=== PATIENT | female | born 1975 | race Caucasian/White ===

== ENCOUNTER → 2024-01-05 | Outpatient (CLI) | payer OTHER ==
[2024-01-05 19:53] LABS: BASOPHILS ABSOLUTE AUTO 0.04 K/mm3 (0.00-0.23); BASOPHILS PERCENT AUTO 1 % (0-2); EOSINOPHILS ABSOLUTE AUTO 0.15 K/mm3 (0.00-0.68); EOSINOPHILS PERCENT AUTO 3 % (0-6); Hemoglobin 14.1 g/dL (11.5-16.0); IMMATURE GRAN ABSOLUTE AUTO 0.01 K/mm3 (0.00-0.10); IMMATURE GRAN PERCENT AUTO 0 % (0-1); LYMPHOCYTES ABSOLUTE AUTO 1.33 K/mm3 (0.84-5.20); LYMPHOCYTES PERCENT AUTO 28 % (21-46); MONOCYTES ABSOLUTE AUTO 0.26 K/mm3 (0.16-1.47); MONOCYTES PERCENT AUTO 6 % (4-13); Mean Corpuscular HGB 31.9 pg (26.0-34.0); Mean Corpuscular HGB Conc 33.6 g/dL (31.5-36.5); Mean Corpuscular Volume 95 fL (80-100); Mean Platelet Volume 10.2 fL (9.1-12.4); NEUTROPHILS ABSOLUTE AUTO 2.91 K/mm3 (1.96-9.15); NEUTROPHILS PERCENT AUTO 62 % (41-73); Platelet Count 267 K/mm3 (150-400); RDW Coefficient Variation 12.5 % (11.7-14.2); RDW Standard Deviation 43.8 fL (35.1-46.3); RETICULOCYTE ABSOLUTE 0.0332 M/mm3 (0.0200-0.1100); RETICULOCYTE COUNT PERCENT 0.75 % (0.50-2.50); Red Blood Cell Count 4.42 M/mm3 (3.80-5.20)
[2024-01-05 20:34] LABS: Alanine Aminotransfer (ALT/SGP 24 U/L (12-78); Albumin, Blood 4.2 g/dL (3.4-5.0); Albumin/Globulin Ratio 1.2 (0.8-1.8); Alk Phos 76 U/L (50-136); Anion Gap 8 mmol/L (3-11); Aspartate Aminotrans (AST/SGOT 19 U/L (12-37); Bilirubin, Direct 0.1 mg/dL (0.0-0.3); Bilirubin, Indirect 0.4 mg/dL (0.1-0.7); Bilirubin, Total 0.5 mg/dL (0.1-1.0); Blood Urea Nitrogen 12 mg/dL (8-24); CHOL/HDL RATIO 2.6; CO2, Blood 28 mmol/L (21-32); Calcium, Blood 9.5 mg/dL (8.5-10.1); Chloride, Blood 108 mmol/L (98-108); Cholesterol 216 mg/dL (50-200); Creatinine, Blood 0.75 mg/dL (0.40-1.00); Ferritin, Serum 75 ng/mL (8-252); Free Thyroxine 0.99 ng/dL (0.70-1.60); Globulin, Blood 3.5 g/dL (2.2-4.0); Glomerular Filtration Rate 97 (60-); Glucose, Blood 106 mg/dL (70-99); HDL Cholesterol 84 mg/dL (>39); Iron Serum 72 ug/dL (50-170); LDL/HDL RATIO 1.4; Low Density Lipoprotein Chol 121 mg/dL (0-110); Percent Saturation 24.9 % (15.0-50.0); Potassium, Blood 3.7 mmol/L (3.5-5.5); Sodium, Blood 140 mmol/L (136-145); Total Iron Binding Capacity 289 ug/dL (250-450); Total Protein, Blood 7.7 g/dL (6.4-8.2); Triglycerides 53 mg/dL (30-160); Very Low Density Lipoprot Chol 10 mg/dL (6-32)
[2024-01-08 10:28] LABS: HEPATITIS A ANTIBODY, IGM Negative (Negative); HEPATITIS B CORE ANTIBODY, IGM Negative (Negative); HEPATITIS B SURFACE ANTIGEN Negative (Negative); HEPATITIS C AB CIA INTERP Negative (Negative); HEPATITIS C ANTIBODY CIA INDEX 0.12 IV
== END ==
LOC: LAB 19:27 → LAB SHORT 19:27
PROVIDERS: Nurse Practitioner Family
DX: D50.8 Other iron deficiency anemias (principal); G57.93 Unspecified mononeuropathy of bilateral lower limbs; I10 Essential (primary) hypertension; Z11.59 Encounter for screening for other viral diseases; Z13.1 Encounter for screening for diabetes mellitus
CPT/HCPCS: 80053; 80061; 82248; 82306; 82607; 82728; 82746; 83036; 83540; 83550; 83880; 84439; 84443; 85025; 85045

== ENCOUNTER → 2024-09-16 | Outpatient (CLI) | payer OTHER | LOC: LAB 19:39 → LAB SHORT 19:39 | DX: R22.41 Localized swelling, mass and lump, right lower limb (principal) | CPT/HCPCS: 86430 ==

== ENCOUNTER → 2025-02-06 | Outpatient (CLI) | payer OTHER ==
[2025-02-06 22:35] LABS: Anion Gap 7 mmol/L (3-11); Blood Urea Nitrogen 13 mg/dL (8-24); CHOL/HDL RATIO 2.7; CO2, Blood 27 mmol/L (21-32); Calcium, Blood 9.5 mg/dL (8.5-10.1); Chloride, Blood 108 mmol/L (98-108); Cholesterol 197 mg/dL (50-200); Creatinine, Blood 0.75 mg/dL (0.40-1.00); Glucose, Blood 95 mg/dL (70-99); HDL Cholesterol 73 mg/dL (>39); LDL/HDL RATIO 1.5; Low Density Lipoprotein Chol 111 mg/dL (0-110); Potassium, Blood 4.1 mmol/L (3.5-5.5); Sodium, Blood 138 mmol/L (136-145); Thyroid Stimulating Hormone 1.010 uIU/mL (0.360-4.800); Triglycerides 63 mg/dL (30-160); Very Low Density Lipoprot Chol 12 mg/dL (6-32)
== END ==
LOC: LAB 09:00 → LAB SHORT 09:00
PROVIDERS: Student in an Organized Health Care Education/Training Program
DX: R00.2 Palpitations (principal); R73.9 Hyperglycemia, unspecified
CPT/HCPCS: 80048; 80061; 83036; 84439; 84443